=== PATIENT | male | born 1990 | race Caucasian/White ===

== ENCOUNTER 2022-07-13 15:20 | Inpatient (IN) | payer BC ==
[2022-07-13 16:53] VITALS: BMI 28.3
[2022-07-13] MEDS ORDERED: POLYETHYLENE GLYCOL (HEALTHYLAX) 3350 17 GM PACKET PO PRN (19:37)
[2022-07-13] MEDS ORDERED: NALOXONE HCL (KLOXXADO) 8 MG SPRAY NS PRN (19:37)
[2022-07-13] MEDS ORDERED: METHOCARBAMOL 500 MG TABLET PO PRN (19:37)
[2022-07-13] MEDS ORDERED: IBUPROFEN 400 MG TABLET (FP) PO PRN (19:37)
[2022-07-13] MEDS ORDERED: ONDANSETRON *ODT* 4 MG TABLET SL PRN (19:37)
[2022-07-13] MEDS ORDERED: MAGNESIUM HYDROX 2400MG/30ML ORAL SUSPENSION 30 ML CUP PO PRN (19:37)
[2022-07-13] MEDS ORDERED: DICYCLOMINE HCL 10 MG CAPSULE PO PRN (19:37)
[2022-07-13] MEDS ORDERED: ACETAMINOPHEN 325 MG TABLET (FP) PO PRN ×2 (19:37)
[2022-07-13] MEDS ORDERED: IBUPROFEN 600 MG TABLET (FP) PO PRN (19:37)
[2022-07-13] MEDS ORDERED: chlordiazePOXIDE HCL 25 MG CAPSULE PO PRN (19:42)
[2022-07-13] MEDS ORDERED: chlordiazePOXIDE HCL 25 MG CAPSULE ONE (21:58)
[2022-07-13] MEDS ORDERED: MAG HYDROX/AL HYDROX/SIMETH 30 ML UNIT-DOSE CUP ONE (22:00)
[2022-07-13] MEDS ORDERED: MELATONIN 5 MG TABLETS PO SCH (22:00)
[2022-07-13] MEDS ORDERED: ONDANSETRON *ODT* 4 MG TABLET ONE (22:01)
[2022-07-13] MEDS: MAG HYDROX/AL HYDROX/SIMETH 30 ML UNIT-DOSE CUP PO PRN ×2 (22:02→22:54)
[2022-07-13] MEDS: chlordiazePOXIDE HCL 25 MG CAPSULE PO SCH (22:03)
[2022-07-13] MEDS: THIAMINE HCL 100 MG TABLET (FP) PO SCH (22:54)
[2022-07-14] MEDS: chlordiazePOXIDE HCL 25 MG CAPSULE PO SCH ×4 (05:20→19:21)
[2022-07-14] MEDS: PRENATAL VITAMINS W/ FOLIC ACID TABLET (FP) PO SCH (10:16)
[2022-07-14] MEDS: NICOTINE 21 MG/24 HOURS TOPICAL PATCH TD SCH (10:17)
[2022-07-14] MEDS: MAG HYDROX/AL HYDROX/SIMETH 30 ML UNIT-DOSE CUP PO PRN (10:18)
[2022-07-14] MEDS: NICOTINE 10 MG CARTRIDGE (INHALER) IH PRN ×2 (10:18→22:08)
[2022-07-14 11:01] LABS: ALBUMIN 3.4 g/dl (3.4-5.0); CALCIUM 9.1 mg/dL (8.5-10.1)
[2022-07-14 11:02] LABS: BLOOD UREA NITROGEN 9.7 mg/dL (7-18)
[2022-07-14 11:04] LABS: CREATININE 0.7 mg/dL (0.55-1.3)
[2022-07-14 11:05] LABS: HEMATOCRIT 42.4 % (35.4-49); MCH 30.2 pg (25.7-33.7); MEAN CELL VOLUME 91.4 fl (80-96); MEAN PLT VOLUME 6.9 fl (7.5-11.1); PLATELET COUNT 351 10^3/uL (134-434); RBC 4.64 M/mm3 (4.00-5.60); RDW 12.9 % (11.9-15.9); WHITE BLOOD COUNT 7.1 K/mm3 (4.0-10.0)
[2022-07-14 11:06] LABS: BILIRUBIN,TOTAL 0.6 mg/dL (0.2-1); TOT PROT 6.2 g/dl (6.4-8.2)
[2022-07-14] MEDS: BISMUTH SUBSALICYLATE 524 MG/30 ML PO PRN ×2 (17:32→22:10)
[2022-07-14] MEDS: LOPERAMIDE HCL 2 MG CAPSULE PO PRN (17:32)
[2022-07-14] MEDS ORDERED: diphenhydrAMINE HCL 25 MG CAPSULE (FP) PO ONE (18:51)
[2022-07-14] MEDS ORDERED: LORazepam 1 MG TABLET PO PRN (18:52)
[2022-07-14] MEDS: SUVOREXANT 10 MG TABLET PO PRN (22:07)
[2022-07-14] MEDS: THIAMINE HCL 100 MG TABLET (FP) PO SCH (22:08)
[2022-07-14] MEDS: ALBUTEROL SO4 HFA INHALER IH PRN (22:10)
[2022-07-14] MEDS: BENZOCAINE/MENTHOL (CHLORASEPTIC ) LOZENGE MM PRN (22:36)
[2022-07-14] MEDS ORDERED: LORazepam 2 MG TABLET PO SCH (23:00)
[2022-07-15] MEDS: MAG HYDROX/AL HYDROX/SIMETH 30 ML UNIT-DOSE CUP PO PRN ×3 (00:38→22:14)
[2022-07-15] MEDS ORDERED: chlordiazePOXIDE HCL 25 MG CAPSULE PO SCH (05:00)
[2022-07-15] MEDS: LORazepam 1 MG TABLET PO SCH ×4 (06:19→22:12)
[2022-07-15] MEDS: BENZOCAINE/MENTHOL (CHLORASEPTIC ) LOZENGE MM PRN ×2 (06:22→22:14)
[2022-07-15] MEDS: PRENATAL VITAMINS W/ FOLIC ACID TABLET (FP) PO SCH (10:18)
[2022-07-15] MEDS: NICOTINE 21 MG/24 HOURS TOPICAL PATCH TD SCH (10:18)
[2022-07-15] MEDS: ALBUTEROL SO4 HFA INHALER IH PRN (10:21)
[2022-07-15] MEDS: LOPERAMIDE HCL 2 MG CAPSULE PO PRN (17:15)
[2022-07-15] MEDS: NICOTINE 10 MG CARTRIDGE (INHALER) IH PRN (17:16)
[2022-07-15] MEDS: THIAMINE HCL 100 MG TABLET (FP) PO SCH (22:12)
[2022-07-15] MEDS: SUVOREXANT 10 MG TABLET PO PRN (22:14)
[2022-07-16] MEDS ORDERED: chlordiazePOXIDE HCL 10 MG CAPSULE PO PRN
[2022-07-16] MEDS ORDERED: chlordiazePOXIDE HCL 10 MG CAPSULE PO SCH (05:00)
[2022-07-16] MEDS: LORazepam 0.5 MG TABLET PO SCH ×4 (05:56→22:18)
[2022-07-16] MEDS: MAG HYDROX/AL HYDROX/SIMETH 30 ML UNIT-DOSE CUP PO PRN ×2 (05:57→17:29)
[2022-07-16] MEDS: PRENATAL VITAMINS W/ FOLIC ACID TABLET (FP) PO SCH (10:32)
[2022-07-16] MEDS: NICOTINE 21 MG/24 HOURS TOPICAL PATCH TD SCH (10:34)
[2022-07-16] MEDS ORDERED: diphenhydrAMINE HCL 50 MG CAPSULE PO ONE (12:00)
[2022-07-16] MEDS: PANTOPRAZOLE 40 MG TABLET PO SCH (19:18)
[2022-07-16] MEDS: LOPERAMIDE HCL 2 MG CAPSULE PO PRN (22:18)
[2022-07-16] MEDS: SUVOREXANT 10 MG TABLET PO PRN (22:18)
[2022-07-16] MEDS: THIAMINE HCL 100 MG TABLET (FP) PO SCH (22:19)
[2022-07-16] MEDS: ALBUTEROL SO4 HFA INHALER IH PRN (22:19)
[2022-07-16] MEDS: NICOTINE 10 MG CARTRIDGE (INHALER) IH PRN (22:21)
[2022-07-17] MEDS ORDERED: LORazepam 0.5 MG TABLET PO PRN
[2022-07-17] MEDS: MAG HYDROX/AL HYDROX/SIMETH 30 ML UNIT-DOSE CUP PO PRN ×2 (00:50→10:34)
[2022-07-17] MEDS ORDERED: chlordiazePOXIDE HCL 10 MG CAPSULE PO SCH (05:00)
[2022-07-17] MEDS ORDERED: LORazepam 0.5 MG TABLET PO ONE (05:00)
[2022-07-17 10:31] VITALS: BP 118/68; PULSE 101; RESP 20; TEMP 97.3
[2022-07-17] MEDS: NICOTINE 21 MG/24 HOURS TOPICAL PATCH TD SCH (10:33)
[2022-07-17] MEDS: PANTOPRAZOLE 40 MG TABLET PO SCH (10:34)
[2022-07-17] MEDS: PRENATAL VITAMINS W/ FOLIC ACID TABLET (FP) PO SCH (10:34)
[2022-07-18] MEDS ORDERED: chlordiazePOXIDE HCL 10 MG CAPSULE PO ONE (05:00)
== END 2022-07-17 12:20 | disposition home or self-care (01) | DRG 775 ==
LOC: YASAS 15:20 → Y6N 21:52
PROVIDERS: ADMIT Allergy & Immunology; ATTEND Surgery
PROC: HZ2ZZZZ Detoxification Services for Substance Abuse Treatment (ICD-10-PCS; principal; 2022-07-13)
DX: F10.230 Alcohol dependence with withdrawal, uncomplicated (principal); F17.210 Nicotine dependence, cigarettes, uncomplicated; F10.282 Alcohol dependence with alcohol-induced sleep disorder; F10.280 Alcohol dependence with alcohol-induced anxiety disorder; G47.00 Insomnia, unspecified; J45.909 Unspecified asthma, uncomplicated; K21.9 Gastro-esophageal reflux disease without esophagitis; Z56.0 Unemployment, unspecified; Z59.00 Homelessness unspecified; Z88.8 Allergy status to other drugs, medicaments and biological substances
CPT/HCPCS: 36415; 80053; 85027; 86780; 87811; 93005; 93010; C9803-CS; Q0162; U0003; U0005